=== PATIENT | female | born 1945 | race Caucasian/White ===

== ENCOUNTER 2016-10-22 05:19 | Emergency (ER) | payer MEDICARE, OTHER ==
[~2016-10-22] VITALS: Ht 149.9 cm; Wt 56.0 kg
[2016-10-22] MEDS ORDERED: LEVO25TA2 PO (05:40)
[2016-10-22] MEDS ORDERED: PANT20TA3 PO (05:40)
[2016-10-22] MEDS ORDERED: EZET10TA3 PO (05:40)
[2016-10-22] MEDS ORDERED: RANI150T8 PO (05:40)
[2016-10-22] MEDS ORDERED: ROSU20TA PO (05:40)
[2016-10-22] MEDS ORDERED: SODIUM CHLORIDE 0.9% 1,000 ML IV ONE (05:51)
[2016-10-22] MEDS ORDERED: SODIUM CHLORIDE 0.9% 1,000ML IVBOLUS ONE (06:00)
[2016-10-22] MEDS ORDERED: FAMOTIDINE 20 MG/2 ML IVP ONE (06:00)
[2016-10-22] MEDS ORDERED: ONDANSETRON 2MG/ML, 2ML IVPush ONE ×2 (06:00→09:30)
[2016-10-22] MEDS ORDERED: ASPIRIN 81 MG TABLET CHEW PO ONE (06:00)
[2016-10-22] MEDS ORDERED: MAALOX/HYOSCYAMINE/LIDOCAINE 45 ML BOTTLE PO ONE (06:00)
[2016-10-22] MEDS ORDERED: ONDANSETRON 2MG/ML, 2ML ONE ×2 (06:01→09:11)
[2016-10-22] MEDS ORDERED: MAALOX/HYOSCYAMINE/LIDOCAINE 45 ML BOTTLE ONE (06:01)
[2016-10-22] MEDS ORDERED: ASPIRIN 81 MG TABLET CHEW ONE (06:01)
[2016-10-22] MEDS ORDERED: FAMOTIDINE 20 MG/2 ML ONE (06:01)
[2016-10-22 07:18] LABS: ASPARTATE AMINO TRANSFERASE 25 U/L (15-37); BLOOD UREA NITROGEN 17 mg/dL (7-18)
[2016-10-22 07:24] LABS: IS PT STATUS REG ER OR PRE ER? YES
[2016-10-22 09:13] VITALS: BP 119/45
== END 2016-10-22 10:36 | disposition home or self-care (01) ==
LOC: ED 08:30
DX: R55 Syncope and collapse (principal); K29.00 Acute gastritis without bleeding; K21.9 Gastro-esophageal reflux disease without esophagitis; Z87.891 Personal history of nicotine dependence; J44.9 Chronic obstructive pulmonary disease, unspecified; E78.00 Pure hypercholesterolemia, unspecified
CPT/HCPCS: 36415; 74022; 80053; 83690; 84484; 85025; 85610; 93005; 96361; 96374; 96375; 96376; 99285; J2405; J7030; S0028

== ENCOUNTER 2020-09-25 10:51 | Day surgery (SDC) | payer MEDICARE, OTHER ==
[~2020-09-25] VITALS: Ht 149.9 cm; Wt 56.8 kg
[~2020-09-25 10:51] MED LIST: EZET10TA70 PO; LEVO25TA2 PO; PANT20TA4 PO; RANI-467 PO; ROSU20TA2 PO
== END 2020-09-25 12:54 | disposition home or self-care (01) ==
LOC: CACL 10:51
PROVIDERS: ATTEND Internal Medicine Cardiovascular Disease
DX: R55 Syncope and collapse (principal); I10 Essential (primary) hypertension; J44.9 Chronic obstructive pulmonary disease, unspecified; E78.5 Hyperlipidemia, unspecified; Z79.890 Hormone replacement therapy; Z79.899 Other long term (current) drug therapy; Z87.891 Personal history of nicotine dependence; Z88.8 Allergy status to other drugs, medicaments and biological substances; Z90.49 Acquired absence of other specified parts of digestive tract; Z98.890 Other specified postprocedural states
CPT/HCPCS: 33285; C1764

== ENCOUNTER → 2020-10-17 | Outpatient (CLI) | payer MEDICARE, OTHER | END | disposition home or self-care (01) | LOC: CFH 10:29 | PROVIDERS: ATTEND Internal Medicine | DX: I25.10 Atherosclerotic heart disease of native coronary artery without angina pectoris (principal); I10 Essential (primary) hypertension; E78.5 Hyperlipidemia, unspecified | CPT/HCPCS: 75571 ==

== ENCOUNTER 2020-12-12 06:29 | Observation (INO) | payer MEDICARE, OTHER ==
[~2020-12-12] VITALS: Ht 149.9 cm; Wt 59.8 kg
[2020-12-12] MEDS ORDERED: SODIUM CHLORIDE 0.9% 1,000 ML IV SCH (07:00)
[2020-12-12] MEDS ORDERED: LYSI100010 PO (07:06)
[2020-12-12] MEDS ORDERED: LISI5TAB7 PO (07:06)
[2020-12-12] MEDS ORDERED: MELA10CA PO (07:06)
[2020-12-12] MEDS ORDERED: [UNRECOGNIZED DRUG - CODE] PO (07:06)
[2020-12-12] MEDS ORDERED: CALC-534 PO (07:06)
[2020-12-12] MEDS ORDERED: OMEG1CAP2 PO (07:06)
[2020-12-12] MEDS ORDERED: POLY17PO5 PO (07:06)
[2020-12-12] MEDS ORDERED: OMEP-110 PO (07:06)
[2020-12-12] MEDS ORDERED: LATA7.5D EACHEYE (07:06)
[2020-12-12] MEDS ORDERED: LEVO75TA PO (07:06)
[2020-12-12] MEDS ORDERED: MULT-658 PO (07:06)
[2020-12-12] MEDS ORDERED: CYAN50009 PO (07:06)
[2020-12-12] MEDS ORDERED: CHOL10003 PO (07:06)
[2020-12-12] MEDS ORDERED: UBID100C41 PO (07:12)
[2020-12-12] MEDS ORDERED: OLOP5DRO19 EACHEYE (07:14)
[2020-12-12] MEDS ORDERED: LIDOCAINE 2%, 20ML ONE (07:40)
[2020-12-12] MEDS ORDERED: CEFAZOLIN 1,000 MG ONE (07:40)
[2020-12-12] MEDS ORDERED: CEFAZOLIN PMX 1GM/50ML 50 ML ONE (07:40)
[2020-12-12] MEDS ORDERED: FENTANYL PF 100 MCG/2ML ONE (07:40)
[2020-12-12] MEDS ORDERED: MIDAZOLAM 1 MG/ML, 5ML ONE (07:40)
[2020-12-12 08:07] LABS: ANION GAP 5 mmol/L (5-15); CALCIUM 10.1 mg/dL (8.5-10.1); CHLORIDE 107 mmol/L (98-107); INTERNATIONAL NORMALIZED RATIO 0.91 (0.93-1.1); PROTHROMBIN TIME 9.8 Seconds (9.6-11.5)
[2020-12-12 08:10] LABS: BASOPHILS % (AUTO) 1 % (0-1); EOSINOPHILS % (AUTO) 4 % (1-7); LYMPHOCYTES % (AUTO) 30 % (22-44); MEAN CORPUSCULAR HEMOGLOBIN 29.3 pg (27.0-34.8); MEAN PLATELET VOLUME 7.5 fL (7.4-10.4); MONOCYTES % (AUTO) 10 % (2-9); NEUTROPHILS % (AUTO) 55 % (42-75); PLATELET COUNT 266 x10^3/uL (130-400); RED BLOOD COUNT 4.17 x10^6/uL (3.82-5.3); RED CELL DISTRIBUTION WIDTH 13.3 % (9.6-15.2)
[2020-12-12 08:20] LABS: CREATININE 1.32 mg/dL (0.55-1.02)
[2020-12-12] MEDS ORDERED: ZOLPIDEM 5MG TABLET PO PRN (10:30)
[2020-12-12] MEDS ORDERED: HYDROcodone/APAP 5/325 TABLET PO PRN (10:30)
[2020-12-12] MEDS ORDERED: POLYETHYLENE GLYCOL 17 GM PACKET PO PRN (10:30)
[2020-12-12] MEDS ORDERED: HOLD MEDICATION MC PRN (10:30)
[2020-12-12] MEDS ORDERED: ACETAMINOPHEN 325 MG TABLET PO PRN (10:30)
[2020-12-12] MEDS ORDERED: OLOPATADINE HCL EACHEYE PRN (10:30)
[2020-12-12] MEDS ORDERED: PLEASE ENTER HEIGHT AND WEIGHT MC SCH (11:00)
[2020-12-12 12:40] VITALS: BP 106/69
[2020-12-12] MEDS: CEFAZOLIN PMX 1GM/50ML 50 ML IVPB SCH (17:24)
[2020-12-12 19:56] VITALS: BP 99/64
[2020-12-12] MEDS ORDERED: MELATONIN 5 MG TABLET ONE (20:49)
[2020-12-12 20:51] VITALS: BP 105/63
[2020-12-12] MEDS: OMEGA-3/FISH OIL CAPSULE PO SCH ×2 (20:52→20:57)
[2020-12-12] MEDS: LISINOPRIL 5 MG TABLET PO SCH (20:52)
[2020-12-12] MEDS: SODIUM CHLORIDE FLUSH 10ML SYR IVF SCH (20:57)
[2020-12-12] MEDS ORDERED: LATANOPROST OPHTH 0.005%, 2.5ML EACHEYE SCH (21:00)
[2020-12-12] MEDS ORDERED: TEMPLATE NON-FORMULARY MED. (Latanoprost/Pf (Latanoprost 0.005% Eye Drop) 1 DROP) EACHEYE SCH (21:00)
[2020-12-13 00:37] VITALS: BP 100/60
[2020-12-13] MEDS: CEFAZOLIN PMX 1GM/50ML 50 ML IVPB SCH (00:40)
[2020-12-13] MEDS ORDERED: LEVOTHYROXINE 75 MCG TABLET PO SCH (06:00)
[2020-12-13 07:28] VITALS: BP 103/50
[2020-12-13] MEDS ORDERED: ACET325T26 PO (08:03)
[2020-12-13] MEDS: OMEGA-3/FISH OIL CAPSULE PO SCH (08:47)
[2020-12-13] MEDS: LISINOPRIL 5 MG TABLET PO SCH (08:48)
[2020-12-13] MEDS: SODIUM CHLORIDE FLUSH 10ML SYR IVF SCH (08:49)
[2020-12-13] MEDS ORDERED: EZETIMIBE 10 MG TABLET PO SCH (09:00)
[2020-12-13] MEDS ORDERED: ATORVASTATIN 20 MG TABLET PO SCH (09:00)
[2020-12-13] MEDS ORDERED: UBIDECARENONE 200 MG HOMEMEDPO SCH (09:00)
[2020-12-13] MEDS ORDERED: MELATONIN 5 MG TABLET PO SCH (09:00)
[2020-12-13] MEDS ORDERED: OMEPRAZOLE 20 MG CAPSULE.DR PO SCH (09:00)
[2020-12-13] MEDS ORDERED: CALCIUM/VITAMIN D3 250-125 TABLET PO SCH (09:00)
[2020-12-13] MEDS ORDERED: CYANOCOBALOMIN 100MCG TABLET PO SCH (09:00)
[2020-12-13] MEDS ORDERED: CHOLECALCIFEROL 1,000 UNIT TABLET PO SCH (09:00)
[2020-12-13] MEDS ORDERED: MULTIVITAMIN 1 TABLET PO SCH (09:00)
[2020-12-13] MEDS ORDERED: TEMPLATE NON-FORMULARY MED. (Rosuvastatin Calcium** (Crestor**) 5 MG) PO SCH (09:00)
== END 2020-12-13 09:46 | disposition home or self-care (01) ==
LOC: CACL 06:29 → 5SO 10:26 → CACL 12:24
PROVIDERS: ADMIT Internal Medicine Cardiovascular Disease; ATTEND Internal Medicine Cardiovascular Disease
DX: I49.5 Sick sinus syndrome (principal); E78.5 Hyperlipidemia, unspecified; I10 Essential (primary) hypertension; I77.77 Dissection of artery of lower extremity; I25.10 Atherosclerotic heart disease of native coronary artery without angina pectoris; E87.5 Hyperkalemia; Z87.891 Personal history of nicotine dependence; Z79.899 Other long term (current) drug therapy
CPT/HCPCS: 33208; 33286; 36415; 71045; 71046; 80048; 85025; 85610; 93005; 96365; 96366; 99156; 99157; C1779; C1785; C1892; G0378; J0690; J2250; J3010; J3490